=== PATIENT | female | born 1950 | race Caucasian/White ===

== ENCOUNTER 2024-12-10 16:45 | Inpatient (IN) | payer MEDICARE ==
[~2024-12-10] VITALS: Ht 160 cm; Wt 77.1 kg
[2024-12-10 17:28] LABS: BASO % 0.2 % (0.0-1.0); EOS % 0.3 % (1.0-4.0); HEMATOCRIT 42.2 % (37.0-47.0); MEAN CELL VOLUME 96.3 fl (81.0-99.0); MEAN CORPUSCULAR HGB 30.8 pg (27.0-31.0); MEAN PLATELET VOLUME 9.6 fl (9.6-12.3); MONO # 0.4 10*3/uL (0.1-1.0); MONO % 7.4 % (3.0-9.0); NEUT # 4.1 10*3/uL (2.3-7.9); NEUT % 68.8 % (47.0-73.0); PLATELET COUNT AUTOMATED 247 10*3/uL (130-400); RED BLOOD COUNT 4.38 10*6/uL (4.10-5.10); RED CELL DISTRI WIDTH 13.4 % (0-14.5); WHITE BLOOD COUNT 5.9 10*3/uL (4.8-10.8)
[2024-12-10 17:49] LABS: BUN 10 mg/dl (9-23); CHLORIDE 100 mmol/L (98-107); ETHYL ALCOHOL < 3.0 mg/dl (<3); POTASSIUM 4.1 mmol/L (3.4-5.1)
[2024-12-10 18:07] LABS: BILIRUBIN Negative (Negative); BLOOD Negative (Negative); CLARITY Cloudy (Clear); COLOR Yellow (Yellow); GLUCOSE Negative (Negative); KETONE Negative (Negative); LEUKO ESTERASE 1+ (Negative); NITRITE Negative (Negative); SPECIFIC GRAVITY 1.015 (1.001-1.030); UROBILINOGEN 0.2 E.U./dl (0.0-1.0)
[2024-12-10 18:12] LABS: BACTERIA 2+; RBC 0-2 rbc/hpf (0-2)
[2024-12-10 18:14] LABS: URINE AMPHETAMINES Negative (1000ng/ml); URINE BARBITURATES Negative (200ng/ml); URINE BENZODIAZEPINES Negative (200ng/ml); URINE CANNABINOIDS (THC) Negative (50ng/ml); URINE COCAINE Negative (300ng/ml); URINE METHADONE Negative (300ng/ml); URINE OPIATES Negative (300ng/ml); URINE PHENCYCLIDINE Negative (25ng/ml)
[2024-12-10] MEDS ORDERED: LIPITOR20 MG PO (22:09)
[2024-12-10] MEDS ORDERED: DOCUSATE SOD100 MG PO (22:09)
[2024-12-10] MEDS ORDERED: PEPCID20 MG PO (22:10)
[2024-12-10] MEDS ORDERED: CLARITIN10 MG PO (22:10)
[2024-12-10] MEDS ORDERED: COZAAR25 M1 PO (22:11)
[2024-12-10] MEDS ORDERED: BETIMOL5 M2 OPH (22:12)
[2024-12-10] MEDS ORDERED: CEFUROXIME AXE500 MG PO (22:20)
[2024-12-11] MEDS ORDERED: LORazepam 2 MG/ML VIAL IM PRN (00:05)
[2024-12-11] MEDS ORDERED: LORazepam 1 MG TAB PO PRN (00:05)
[2024-12-11] MEDS ORDERED: Ziprasidone Mesylate 20 MG VIAL IM PRN (00:05)
[2024-12-11] MEDS ORDERED: Water, Sterile 10 ML VIAL IM PRN (00:05)
[2024-12-11] MEDS ORDERED: hydrOXYzine pamoate 25 MG CAP PO PRN (00:15)
[2024-12-11] MEDS ORDERED: hydrOXYzine hydrochloride 50 MG/ML VIAL IM PRN (00:15)
[2024-12-11 07:28] LABS: BASO % 0.2 % (0.0-1.0); EOS % 0.2 % (1.0-4.0); HEMATOCRIT 43.5 % (37.0-47.0); MEAN CELL VOLUME 94.8 fl (81.0-99.0); MEAN CORPUSCULAR HGB 30.7 pg (27.0-31.0); MEAN CORPUSCULAR HGB CONC 32.4 g/dl (33.0-37.0); MEAN PLATELET VOLUME 9.8 fl (9.6-12.3); MONO # 0.5 10*3/uL (0.1-1.0); MONO % 7.9 % (3.0-9.0); NEUT # 3.7 10*3/uL (2.3-7.9); NEUT % 59.4 % (47.0-73.0); PLATELET COUNT AUTOMATED 238 10*3/uL (130-400); RED BLOOD COUNT 4.59 10*6/uL (4.10-5.10); RED CELL DISTRI WIDTH 13.4 % (0-14.5); WHITE BLOOD COUNT 6.2 10*3/uL (4.8-10.8)
[2024-12-11 07:40] LABS: ALKALINE PHOSPHATASE 141 U/L (46-116); BUN 8 mg/dl (9-23); CHLORIDE 100 mmol/L (98-107); CHOLESTEROL 139 mg/dL (<200); LDL CHOLESTEROL 53 mg/dL (9-159); POTASSIUM 3.6 mmol/L (3.4-5.1); SGPT/ALT 11 U/L (5-49); TOTAL PROTEIN 6.2 gm/dL (6.0-8.0); TRIGLYCERIDES 236 mg/dl (<150)
[2024-12-11 08:23] VITALS: BP 153/69
[2024-12-11] MEDS ORDERED: cloZAPine 100 MG TAB PO SCH (09:00)
[2024-12-11] MEDS ORDERED: DOCUSATE SODIUM 100 MG CAP PO SCH (09:00)
[2024-12-11] MEDS ORDERED: Cefuroxime Axetil 250 MG TAB PO SCH (09:00)
[2024-12-11] MEDS ORDERED: FAMOTIDINE 20 MG TAB PO SCH (09:00)
[2024-12-11] MEDS ORDERED: LORATADINE 10 MG TAB PO SCH (09:00)
[2024-12-11] MEDS ORDERED: Losartan Potassium 25 MG TAB PO SCH (09:00)
[2024-12-11] MEDS ORDERED: TIMOLOL 0.5% OPHTHALMIC 5 ML BOTTLE OPH SCH (10:00)
[2024-12-11] MEDS ORDERED: DIVALPROEX (DR) 250 MG TAB PO SCH (13:00)
[2024-12-11 20:00] VITALS: BP 134/69
[2024-12-11] MEDS ORDERED: LAMOTRIGINE 100 MG TAB PO SCH ×2 (21:00)
[2024-12-11] MEDS ORDERED: ATORVASTATIN CALCIUM 20 MG TAB PO SCH (21:00)
[2024-12-12] MEDS ORDERED: TIMOLOL 0.5% OPHTHALMIC 5 ML BOTTLE OPH SCH (09:00)
[2024-12-12 09:08] VITALS: BP 147/90
[2024-12-12 20:00] VITALS: BP 119/68
[2024-12-12] MEDS ORDERED: cloZAPine 100 MG TAB PO SCH (22:00)
[2024-12-13 08:00] VITALS: BP 139/86
[2024-12-13] MEDS ORDERED: cloZAPine 100 MG TAB PO SCH (10:00)
[2024-12-13 20:00] VITALS: BP 115/62
[2024-12-14 08:15] VITALS: BP 147/57
[2024-12-14] MEDS ORDERED: EXT IM SCH (09:00)
[2024-12-14] MEDS ORDERED: MED. FROM HOME 1 EACH EA IM ONE (09:00)
[2024-12-14] MEDS ORDERED: Cholecalciferol 2,000 UNIT TABLET (50 MCG) PO SCH (09:00)
[2024-12-14] MEDS ORDERED: [UNRECOGNIZED DRUG - OTHER] IM SCH (09:00)
[2024-12-14 20:00] VITALS: BP 132/75
[2024-12-15 09:02] VITALS: BP 122/72
[2024-12-15 20:00] VITALS: BP 149/65
[2024-12-16 06:41] LABS: EOS % 0.3 % (1.0-4.0); HEMATOCRIT 44.8 % (37.0-47.0); MEAN CORPUSCULAR HGB 30.9 pg (27.0-31.0); MEAN CORPUSCULAR HGB CONC 31.5 g/dl (33.0-37.0); MEAN PLATELET VOLUME 10.1 fl (9.6-12.3); MONO # 0.5 10*3/uL (0.1-1.0); MONO % 7.5 % (3.0-9.0); NEUT # 3.7 10*3/uL (2.3-7.9); NEUT % 60.8 % (47.0-73.0); PLATELET COUNT AUTOMATED 220 10*3/uL (130-400); RED BLOOD COUNT 4.57 10*6/uL (4.10-5.10); RED CELL DISTRI WIDTH 13.5 % (0-14.5); WHITE BLOOD COUNT 6.1 10*3/uL (4.8-10.8)
[2024-12-16 07:08] LABS: ALKALINE PHOSPHATASE 132 U/L (46-116); BUN 12 mg/dl (9-23); CHLORIDE 101 mmol/L (98-107); POTASSIUM 4.1 mmol/L (3.4-5.1); SGPT/ALT 10 U/L (5-49); TOTAL PROTEIN 6.6 gm/dL (6.0-8.0)
[2024-12-16 08:00] VITALS: BP 113/75
[2024-12-16 12:07] LABS: CLOZAPINE 483 ng/mL (350-600); NORCLOZAPINE, SERUM 141 ng/mL (Not Estab.); TOTAL (CLOZ+NORCLOZ) 624 ng/mL (.)
[2024-12-16 20:00] VITALS: BP 151/76
[2024-12-17 08:00] VITALS: BP 136/76
[2024-12-17 20:00] VITALS: BP 133/88
[2024-12-18 06:43] LABS: BASO % 0.1 % (0.0-1.0); MONO # 0.5 10*3/uL (0.1-1.0); MONO % 5.6 % (3.0-9.0); NEUT # 6.9 10*3/uL (2.3-7.9); NEUT % 75.6 % (47.0-73.0); WHITE BLOOD COUNT 9.2 10*3/uL (4.8-10.8)
[2024-12-18 07:46] VITALS: BP 116/83
[2024-12-18] MEDS ORDERED: DIVALPROEX (DR) 250 MG TAB PO SCH (13:00)
[2024-12-18 20:00] VITALS: BP 121/62
[2024-12-18] MEDS ORDERED: LAMOTRIGINE 25 MG TAB PO SCH (21:00)
[2024-12-19 08:26] VITALS: BP 103/61
[2024-12-19 20:00] VITALS: BP 112/60
[2024-12-19] MEDS ORDERED: DIVALPROEX (DR) 500 MG TAB PO SCH (21:00)
[2024-12-19] MEDS ORDERED: cloZAPine 100 MG TAB PO SCH (21:00)
[2024-12-20 08:00] VITALS: BP 134/74
[2024-12-20 20:00] VITALS: BP 144/60
[2024-12-20] MEDS ORDERED: LAMOTRIGINE 25 MG TAB PO SCH (21:00)
[2024-12-21 08:00] VITALS: BP 122/79
[2024-12-21 20:00] VITALS: BP 136/58
[2024-12-22 08:16] VITALS: BP 135/68
[2024-12-22 20:00] VITALS: BP 114/68
[2024-12-23 07:08] LABS: BASO % 0.2 % (0.0-1.0); HEMATOCRIT 41.3 % (37.0-47.0); MEAN CELL VOLUME 96.7 fl (81.0-99.0); MEAN CORPUSCULAR HGB 31.4 pg (27.0-31.0); MEAN CORPUSCULAR HGB CONC 32.4 g/dl (33.0-37.0); MEAN PLATELET VOLUME 10.2 fl (9.6-12.3); MONO # 0.4 10*3/uL (0.1-1.0); MONO % 8.5 % (3.0-9.0); NEUT % 59.1 % (47.0-73.0); PLATELET COUNT AUTOMATED 167 10*3/uL (130-400); RED BLOOD COUNT 4.27 10*6/uL (4.10-5.10); RED CELL DISTRI WIDTH 13.4 % (0-14.5); WHITE BLOOD COUNT 5.2 10*3/uL (4.8-10.8)
[2024-12-23 07:33] LABS: ALKALINE PHOSPHATASE 108 U/L (46-116); BUN 12 mg/dl (9-23); CHLORIDE 103 mmol/L (98-107); POTASSIUM 4.1 mmol/L (3.4-5.1); SGPT/ALT 11 U/L (5-49); TOTAL PROTEIN 5.4 gm/dL (6.0-8.0); VALPROIC ACID (DEPAKENE) 76.1 ug/ml (50-100)
[2024-12-23 08:00] VITALS: BP 102/78
[2024-12-23 20:00] VITALS: BP 120/67
[2024-12-24 07:21] LABS: CHOLESTEROL 112 mg/dL (<200); LDL CHOLESTEROL 49 mg/dL (9-159); TRIGLYCERIDES 128 mg/dl (<150)
[2024-12-24 08:00] VITALS: BP 108/69
[2024-12-24] MEDS ORDERED: DIVALPROEX SOD500 MG PO (08:27)
[2024-12-24] MEDS ORDERED: VITAMIN D350 MCG PO (08:27)
[2024-12-24] MEDS ORDERED: CLOZAPINE100 MG PO ×2 (08:27)
== END 2024-12-24 10:04 | disposition home or self-care (01) | DRG 885 ==
LOC: ED 16:45 → 3N 18:58 → EDHOLD 18:58 → 3N 19:16
PROVIDERS: Counselor Professional; Emergency Medicine; Nurse Practitioner; Psychiatry & Neurology Psychiatry; ADMIT Psychiatry & Neurology Psychiatry; ATTEND Psychiatry & Neurology Psychiatry
PROC: GZHZZZZ Group Psychotherapy (ICD-10-PCS; principal; 2024-12-11)
PROC: GZ51ZZZ Individual Psychotherapy, Behavioral (ICD-10-PCS; 2024-12-11)
DX: F25.0 Schizoaffective disorder, bipolar type (principal); N39.0 Urinary tract infection, site not specified; F03.918 Unspecified dementia, unspecified severity, with other behavioral disturbance; I10 Essential (primary) hypertension; H35.30 Unspecified macular degeneration; K21.9 Gastro-esophageal reflux disease without esophagitis; E78.5 Hyperlipidemia, unspecified; Z66 Do not resuscitate; K59.00 Constipation, unspecified; Z88.1 Allergy status to other antibiotic agents; Z82.49 Family history of ischemic heart disease and other diseases of the circulatory system; Z79.899 Other long term (current) drug therapy

== ENCOUNTER 2025-03-08 14:21 | Inpatient (IN) | payer MEDICARE ==
[~2025-03-08] VITALS: Ht 160 cm; Wt 78.9 kg
[~2025-03-08 14:21] MED LIST: BETIMOL5 M2 OPH; CEFUROXIME AXE500 MG PO; CLARITIN10 MG PO; CLOZAPINE100 MG PO; COZAAR25 M1 PO; DIVALPROEX SOD500 MG PO; DOCUSATE SOD100 MG PO; LIPITOR20 MG PO; PEPCID20 MG PO; VITAMIN D350 MCG PO
[2025-03-08 14:58] VITALS: BP 120/62
[2025-03-08 15:25] LABS: BILIRUBIN Negative (Negative); BLOOD Negative (Negative); CLARITY Clear (Clear); COLOR Yellow (Yellow); KETONE Trace (Negative); LEUKO ESTERASE 1+ (Negative); NITRITE Negative (Negative); PH 7.0 (4.5-8.0); SPECIFIC GRAVITY 1.015 (1.001-1.030); UROBILINOGEN 1.0 E.U./dl (0.0-1.0)
[2025-03-08 15:32] LABS: BASO # 0.0 10*3/uL (0.0-0.1); BASO % 0.0 % (0.0-1.0); EOS # 0.0 10*3/uL (0.0-0.4); EOS % 0.0 % (1.0-4.0); MEAN CELL VOLUME 97.8 fl (81.0-99.0); MEAN CORPUSCULAR HGB 31.2 pg (27.0-31.0); MEAN PLATELET VOLUME 10.0 fl (9.6-12.3); MONO # 0.3 10*3/uL (0.1-1.0); MONO % 5.7 % (3.0-9.0); NEUT # 4.4 10*3/uL (2.3-7.9); NEUT % 78.1 % (47.0-73.0); NUCLEATED RED BLOOD CELL 0.0 % (0.0-0.0); NUCLEATED RED BLOOD CELL 0.0 10*3/uL (0.0-0.0); PLATELET COUNT AUTOMATED 164 10*3/uL (130-400); RED CELL DISTRI WIDTH 13.5 % (0-14.5)
[2025-03-08 15:32] LABS: URINE AMPHETAMINES Negative (1000ng/ml); URINE BARBITURATES Negative (200ng/ml); URINE BENZODIAZEPINES Negative (200ng/ml); URINE CANNABINOIDS (THC) Negative (50ng/ml); URINE COCAINE Negative (300ng/ml); URINE METHADONE Negative (300ng/ml); URINE OPIATES Negative (300ng/ml); URINE PHENCYCLIDINE Negative (25ng/ml)
[2025-03-08 15:48] LABS: EPITHELIAL CELLS 21-30; RBC 0-2 rbc/hpf (0-2)
[2025-03-08 15:49] LABS: BACTERIA 1+
[2025-03-08 16:02] LABS: BUN 13 mg/dl (9-23); ETHYL ALCOHOL < 3.0 mg/dl (<3)
[2025-03-08] MEDS ORDERED: SENNA8.6 MG PO (16:42)
[2025-03-08] MEDS ORDERED: LAMICTAL200 MG PO (16:44)
[2025-03-08] MEDS ORDERED: LORazepam 1 MG TAB PO PRN (17:00)
[2025-03-08] MEDS ORDERED: hydrOXYzine hydrochloride 50 MG/ML VIAL IM PRN (17:05)
[2025-03-08] MEDS ORDERED: Water, Sterile 10 ML VIAL IM PRN (17:05)
[2025-03-08] MEDS ORDERED: ACETAMINOPHEN 325 MG TAB PO PRN (19:20)
[2025-03-08] MEDS ORDERED: MG-AL HYDROXIDE/SIMETICONE 30 ML UDC PO PRN (19:20)
[2025-03-08] MEDS ORDERED: Menthol/Zinc Oxide 4 GM THIN T PRN (19:30)
[2025-03-08 20:38] VITALS: BP 113/70
[2025-03-08] MEDS ORDERED: LAMOTRIGINE 100 MG TAB PO SCH (21:00)
[2025-03-08] MEDS ORDERED: ATORVASTATIN CALCIUM 20 MG TAB PO SCH (21:00)
[2025-03-08] MEDS ORDERED: FAMOTIDINE 20 MG TAB PO SCH (21:00)
[2025-03-08] MEDS ORDERED: TIMOLOL 0.5% OPHTHALMIC 5 ML BOTTLE OPH SCH (21:00)
[2025-03-09 07:40] LABS: BASO # 0.0 10*3/uL (0.0-0.1); BASO % 0.1 % (0.0-1.0); EOS # 0.0 10*3/uL (0.0-0.4); EOS % 0.0 % (1.0-4.0); MEAN CELL VOLUME 96.9 fl (81.0-99.0); MEAN CORPUSCULAR HGB 31.4 pg (27.0-31.0); MEAN PLATELET VOLUME 9.9 fl (9.6-12.3); MONO # 0.4 10*3/uL (0.1-1.0); MONO % 6.3 % (3.0-9.0); NEUT # 5.3 10*3/uL (2.3-7.9); NEUT % 78.2 % (47.0-73.0); NUCLEATED RED BLOOD CELL 0.0 % (0.0-0.0); NUCLEATED RED BLOOD CELL 0.0 10*3/uL (0.0-0.0); PLATELET COUNT AUTOMATED 180 10*3/uL (130-400); RED CELL DISTRI WIDTH 13.7 % (0-14.5)
[2025-03-09 08:06] LABS: BUN 12 mg/dl (9-23); LDL CHOLESTEROL 87 mg/dL (9-159); SGPT/ALT 12 U/L (5-49)
[2025-03-09] MEDS ORDERED: LORATADINE 10 MG TAB PO SCH (09:00)
[2025-03-09] MEDS ORDERED: Cholecalciferol 2,000 UNIT TABLET (50 MCG) PO SCH (09:00)
[2025-03-09 09:28] LABS: VITAMIN D, 25-HYDROXY 34.3 ng/mL (30-100)
[2025-03-09 20:00] VITALS: BP 153/89
[2025-03-09] MEDS ORDERED: NYSTATIN 15 GM BOT T SCH (22:00)
[2025-03-10 07:56] VITALS: BP 112/63
[2025-03-10 07:57] VITALS: BP 112/63
[2025-03-10] MEDS ORDERED: [UNRECOGNIZED DRUG - OTHER] IM SCH (09:00)
[2025-03-10] MEDS ORDERED: MED. FROM HOME 1 EACH EA IM SCH (11:00)
[2025-03-10 20:00] VITALS: BP 129/82
[2025-03-10] MEDS ORDERED: LITHIUM CARBONATE 450 MG TAB PO SCH (21:00)
[2025-03-11 08:00] VITALS: BP 117/66
[2025-03-11] MEDS ORDERED: BISACODYL 5 MG TAB PO PRN (09:50)
[2025-03-11 17:48] LABS: BILIRUBIN Negative (Negative); BLOOD Negative (Negative); CLARITY Clear (Clear); COLOR Yellow (Yellow); KETONE Negative (Negative); LEUKO ESTERASE 2+ (Negative); NITRITE Negative (Negative); PH 6.5 (4.5-8.0); SPECIFIC GRAVITY <= 1.005 (1.001-1.030); UROBILINOGEN 1.0 E.U./dl (0.0-1.0)
[2025-03-11 18:18] LABS: BACTERIA 2+
[2025-03-11 20:44] VITALS: BP 129/46
[2025-03-12 08:00] VITALS: BP 130/68
[2025-03-12 20:00] VITALS: BP 116/54
[2025-03-12] MEDS ORDERED: Trihexyphenidyl Hydrochlorid 2 MG TAB PO SCH (21:00)
[2025-03-13 08:00] VITALS: BP 130/55
[2025-03-13] MEDS ORDERED: BENZTROPINE MESYLATE 0.5 MG TAB PO SCH (09:22)
[2025-03-13] MEDS ORDERED: AMOXICILLIN 500 MG CAP PO SCH (14:00)
[2025-03-13 20:00] VITALS: BP 143/77
[2025-03-14 08:18] VITALS: BP 152/86
[2025-03-14 20:00] VITALS: BP 128/60
[2025-03-15 06:38] LABS: BASO # 0.0 10*3/uL (0.0-0.1); BASO % 0.0 % (0.0-1.0); EOS # 0.0 10*3/uL (0.0-0.4); EOS % 0.2 % (1.0-4.0); MEAN CELL VOLUME 99.8 fl (81.0-99.0); MEAN CORPUSCULAR HGB 30.9 pg (27.0-31.0); MEAN PLATELET VOLUME 10.2 fl (9.6-12.3); MONO # 0.5 10*3/uL (0.1-1.0); MONO % 8.3 % (3.0-9.0); NEUT # 4.3 10*3/uL (2.3-7.9); NEUT % 69.3 % (47.0-73.0); NUCLEATED RED BLOOD CELL 0.0 % (0.0-0.0); NUCLEATED RED BLOOD CELL 0.0 10*3/uL (0.0-0.0); PLATELET COUNT AUTOMATED 214 10*3/uL (130-400); RED CELL DISTRI WIDTH 13.2 % (0-14.5)
[2025-03-15 07:21] LABS: BUN 12 mg/dl (9-23); SGPT/ALT 12 U/L (5-49)
[2025-03-15 08:00] VITALS: BP 130/55
[2025-03-15 08:21] VITALS: BP 130/55
[2025-03-15] MEDS ORDERED: SODIUM CHLORIDE 0.9% 1,000 ML IV ONE (11:40)
[2025-03-15 19:02] VITALS: BP 99/56
[2025-03-16 08:00] VITALS: BP 105/70
[2025-03-16] MEDS ORDERED: LITHIUM CARBONATE 450 MG TAB PO SCH (09:00)
[2025-03-16] MEDS ORDERED: BENZTROPINE MESYLATE 1 MG TAB PO SCH (09:00)
[2025-03-16 20:00] VITALS: BP 102/62
[2025-03-16] MEDS ORDERED: LITHIUM CARBONATE 300 MG CAP PO SCH (21:13)
[2025-03-16] MEDS ORDERED: LITHIUM CARBONATE 300 MG TAB PO SCH ×2 (21:21→21:40)
[2025-03-16 22:06] LABS: CLOZAPINE 995 ng/mL (350-600); NORCLOZAPINE, SERUM 219 ng/mL (Not Estab.); TOTAL (CLOZ+NORCLOZ) 1214 ng/mL (.)
[2025-03-17 08:26] VITALS: BP 114/66
[2025-03-18 08:35] VITALS: BP 106/70
[2025-03-18 20:00] VITALS: BP 116/55
[2025-03-19] MEDS ORDERED: VITAMIN D350 MCG PO (07:09)
[2025-03-19] MEDS ORDERED: BENZTROPINE MESY1 MG PO (07:09)
[2025-03-19] MEDS ORDERED: LITHIUM CARB300 MG PO (07:09)
[2025-03-19] MEDS ORDERED: CLOZAPINE100 MG PO (07:09)
[2025-03-19] MEDS ORDERED: LAMOTRIGINE100 MG PO (07:09)
[2025-03-19] MEDS ORDERED: HOMEMED IM (07:09)
[2025-03-19 08:00] VITALS: BP 139/74
[2025-03-19 19:55] VITALS: BP 136/55
[2025-03-19] MEDS ORDERED: BENZTROPINE MESYLATE 1 MG TAB PO SCH (21:00)
[2025-03-20 08:00] VITALS: BP 97/80
[2025-03-20] MEDS ORDERED: CLOZAPINE100 MG PO (17:42)
[2025-03-20 20:00] VITALS: BP 93/65
[2025-03-20] MEDS ORDERED: BENZTROPINE MESYLATE 1 MG TAB PO SCH (21:00)
[2025-03-21 08:00] VITALS: BP 113/74
== END 2025-03-21 10:05 | DRG 885 ==
LOC: ED 14:21 → 3N 16:19
PROVIDERS: Counselor Professional; Emergency Medicine; ADMIT Psychiatry & Neurology Psychiatry; ATTEND Psychiatry & Neurology Psychiatry
PROC: GZHZZZZ Group Psychotherapy (ICD-10-PCS; principal; 2025-03-14)
DX: F20.0 Paranoid schizophrenia (principal); N39.0 Urinary tract infection, site not specified; F03.918 Unspecified dementia, unspecified severity, with other behavioral disturbance; I10 Essential (primary) hypertension; H35.30 Unspecified macular degeneration; K21.9 Gastro-esophageal reflux disease without esophagitis; E78.2 Mixed hyperlipidemia; K59.00 Constipation, unspecified; R73.9 Hyperglycemia, unspecified; Z82.49 Family history of ischemic heart disease and other diseases of the circulatory system